=== PATIENT | female | born 1960 | race African-American/Black ===

== ENCOUNTER 2018-02-01 16:22 | Emergency (ER) | payer MEDICAID ==
[~2018-02-01] VITALS: Ht 160 cm; Wt 53.5 kg
[~2018-02-01 16:22] MED LIST: BUPR75TA3; INSU3INS6; INSU3INS6 SUBCUT; LISI10TA5 PO; METO25TA20 PO; SIMV10TA6 PO
--- NOTE | 2018-02-01 16:35 | NUR ---
[id number], [id number] [facility]: HYPOGLYCEMIA 48, D10 STARTED IN FIELD.AOLOC S/P TAKING UNKNOWN PILLS GIVEN BY FRIENDS, PER PATIENT "LIKE XANAX". RR IS EVEN AND UNLABORED WITH NAD NOTED. SKIN IS WARM AND DRY. AWAITING MD FOR EVAL.
--- NOTE | 2018-02-01 16:50 | NUR ---
DIETARY CALLED FOR FOOD TRAY, SNACKS GIVEN
[2018-02-01 16:56] LABS: BASOPHILS % (AUTO) 0.9 % (0.0-2.0); EOSINOPHILS % (AUTO) 3.1 % (0.0-6.0); HEMATOCRIT 36 % (33-45); HEMOGLOBIN 11.7 g/dL (11.5-14.8); LYMPHOCYTES # (AUTO) 2.9 /CMM (0.8-4.8); LYMPHOCYTES % (AUTO) 52.2 % (20.0-44.0); MEAN CORPUSCULAR HEMOGLOBIN 28 PG (26.0-33.0); MEAN CORPUSCULAR HGB CONC 33 g/dl (31.0-36.0); MEAN CORPUSCULAR VOLUME 84 fL (82-100); MONOCYTES # (AUTO) 0.3 /CMM (0.1-1.30); NEUTROPHILS % (AUTO) 37.8 % (43.0-81.0); PLATELET COUNT (AUTO) 328 /CMM (150-450); RDW COEFFICIENT OF VARIATION 12.2 (11.5-15.0); RED BLOOD CELL COUNT(AUTO) 4.21 MIL/uL (4.0-5.2); WHITE BLOOD COUNT (AUTO) 5.4 K/uL (4.3-11.0)
[2018-02-01 17:04] LABS: CREATININE 0.8 mg/dL (0.6-1.3); POTASSIUM 3.5 mmol/L (3.5-5.1)
--- NOTE | 2018-02-01 17:55 | NUR ---
FOOD TRAY GIVEN ORDERED
[2018-02-01 19:07] VITALS: BP 137/75
--- NOTE | 2018-02-01 19:07 | NUR ---
IV removed. Catheter intact and site benign. Pressure and 4x4 applied to site. No bleeding noted. Patient discharged to home in stable condition. Written and verbal after care instructions given. Patient verbalizes understanding of instruction. ambulatory with a steady gait noted. pt [id number] no acute distress noted, resp even and unlabored.
== END 2018-02-01 19:14 | disposition home or self-care (01) ==
LOC: ER 16:42
DX: E11.649 Type 2 diabetes mellitus with hypoglycemia without coma (principal); J18.9 Pneumonia, unspecified organism; F32.9 Major depressive disorder, single episode, unspecified; Z90.710 Acquired absence of both cervix and uterus; Z88.6 Allergy status to analgesic agent; Z91.018 Allergy to other foods; Z79.4 Long term (current) use of insulin
CPT/HCPCS: 36415; 71045; 80048; 85025; 99285; A4606; Z7610